=== PATIENT | female | born 1975 | race African-American/Black ===

== ENCOUNTER 2017-08-06 01:13 | Emergency (ER) | payer OTHER ==
[~2017-08-06] VITALS: Ht 165.1 cm; Wt 73.3 kg
[2017-08-06 01:16] VITALS: BP 143/84
[2017-08-06 01:56] LABS: HEMATOCRIT 37.3 % (36.0-46.0); HEMOGLOBIN 12.2 G/DL (11.9-15.5); MCH 26.5 PG (29.0-34.0); MCHC 32.7 G/DL (30.0-36.0); MCV 81.1 FL (83-99); PLATELET COUNT 200 K/uL (156-360); RBC DIS.WIDTH-SD 40.2 % (39-53); WHITE BLOOD COUNT 8.4 K/uL (4.1-10.2)
[2017-08-06 02:17] LABS: ALBUMIN 4.2 G/DL (3.2-4.8); CHLORIDE 104 MEQ/L (99-109); POTASSIUM 3.9 MEQ/L (3.7-5.4); SODIUM 135 MEQ/L (136-147); TOTAL BILIRUBIN 0.3 MG/DL (0.0-1.0)
[2017-08-06 02:23] LABS: ALKALINE PHOSPHATASE 65 IU/L (3-129); ALT (GPT) 13 IU/L (3-49); AST (GOT) 16 IU/L (2-34); CREATININE 0.8 MG/DL (0.6-1.3); GFR ESTIMATE (CALCULATED) > 59 mL/min/; GLUCOSE 120 mg/dL (70-99); TOTAL PROTEIN 7.3 G/DL (6.4-8.3); UREA NITROGEN (BUN) 10 mg/dL (9-23)
[2017-08-06 02:34] LABS: QUANTITATIVE HCG 90095.5 MIU/ML
[2017-08-06 04:21] LABS: APPEARANCE SL.HAZY ((CLEAR)); BILIRUBIN NEGATIVE; BLOOD MODERATE; COLOR YELLOW ((YELLOW)); GLUCOSE (STRIP) NEGATIVE; KETONES 5; LEUKOCYTES TRACE; NITRITE NEGATIVE; PROTEIN (STRIP) 30; SPECIFIC GRAVITY 1.029 (1.000-1.030); UROBILINOGEN 0.2 MG/DL (0.2-1.0)
[2017-08-06 04:26] LABS: BACTERIA 1+ /HPF; EPITHELIAL CELLS 1+ /HPF; HYALINE CASTS 0-5 /LPF; MUCUS TRACE /LPF; RED BLOOD CELLS 0-5 /HPF (0-5); UCUL ADDED? YES
== END 2017-08-06 05:55 | disposition home or self-care (01) ==
LOC: EME 01:13
DX: O20.9 Hemorrhage in early pregnancy, unspecified (principal); O09.511 Supervision of elderly primigravida, first trimester; Z3A.01 Less than 8 weeks gestation of pregnancy
CPT/HCPCS: 76801; 80053; 81003; 84702; 85027; 87086; 99281; 99284

== ENCOUNTER 2017-08-14 19:52 | Emergency (ER) | payer OTHER ==
[~2017-08-14] VITALS: Ht 165.1 cm; Wt 73.5 kg
[2017-08-14 20:45] LABS: APPEARANCE SL.HAZY ((CLEAR)); BILIRUBIN NEGATIVE; BLOOD LARGE; COLOR YELLOW ((YELLOW)); GLUCOSE (STRIP) 50; KETONES NEGATIVE; LEUKOCYTES NEGATIVE; NITRITE NEGATIVE; PROTEIN (STRIP) NEGATIVE; SPECIFIC GRAVITY 1.011 (1.000-1.030); UROBILINOGEN 0.2 MG/DL (0.2-1.0)
[2017-08-14 21:13] LABS: BACTERIA RARE /HPF; EPITHELIAL CELLS RARE /HPF; MUCUS TRACE /LPF; RED BLOOD CELLS 0-5 /HPF (0-5); UCUL ADDED? NO; WHITE BLOOD CELLS 0-5 /HPF (0-5)
[2017-08-14 21:29] LABS: HEMOGLOBIN 11.6 G/DL (11.9-15.5); MCH 26.8 PG (29.0-34.0); MCHC 33.1 G/DL (30.0-36.0); MCV 80.8 FL (83-99); PLATELET COUNT 218 K/uL (156-360); RBC DIS.WIDTH-SD 41.2 % (39-53); RED BLOOD COUNT 4.33 M/uL (3.80-5.20)
[2017-08-14 21:42] LABS: ALBUMIN 3.8 g/dL (3.2-4.8); CHLORIDE 106 mEq/L (99-109); SODIUM 135 mEq/L (136-147)
[2017-08-14 21:44] LABS: GLUCOSE 199 mg/dL (70-99)
[2017-08-14 21:45] LABS: TOTAL PROTEIN 6.6 g/dL (6.4-8.3)
[2017-08-14 21:46] LABS: TOTAL BILIRUBIN 0.2 mg/dL (0.0-1.0)
[2017-08-14 21:48] LABS: ALKALINE PHOSPHATASE 75 IU/L (3-129); CREATININE 0.8 mg/dL (0.6-1.3); GFR ESTIMATE (CALCULATED) > 59 mL/min/
[2017-08-14 21:49] LABS: UREA NITROGEN (BUN) 9 mg/dL (9-23)
[2017-08-14 21:50] LABS: AST (GOT) 15 IU/L (2-34)
[2017-08-14 21:51] LABS: ALT (GPT) 13 IU/L (3-49)
[2017-08-14 22:48] VITALS: BP 155/83
== END 2017-08-14 22:48 | disposition home or self-care (01) ==
LOC: EME 19:52
PROVIDERS: Physician Assistant
DX: O43.891 Other placental disorders, first trimester (principal); O20.8 Other hemorrhage in early pregnancy; Z3A.01 Less than 8 weeks gestation of pregnancy
CPT/HCPCS: 76801; 80053; 81003; 84702; 85027; 99281; 99284

== ENCOUNTER 2017-09-25 02:10 | Emergency (ER) | payer OTHER ==
[~2017-09-25] VITALS: Ht 167.6 cm; Wt 77.3 kg
[2017-09-25 02:37] LABS: APPEARANCE CLEAR ((CLEAR)); COLOR COLORLESS ((YELLOW)); GLUCOSE (STRIP) NEGATIVE; LEUKOCYTES NEGATIVE; NITRITE NEGATIVE; PH, URINE 6 (5-8); PROTEIN (STRIP) NEGATIVE
[2017-09-25 02:38] LABS: BILIRUBIN NEGATIVE; BLOOD NEGATIVE; KETONES NEGATIVE; UCUL ADDED? NO; UROBILINOGEN 0.2 MG/DL (0.2-1.0)
[2017-09-25] MEDS ORDERED: PRENATAL TABLE1 EAC3 PO (04:22)
[2017-09-25 05:07] VITALS: BP 117/79
== END 2017-09-25 05:15 | disposition home or self-care (01) ==
LOC: EME 02:10
DX: O99.89 Other specified diseases and conditions complicating pregnancy, childbirth and the puerperium (principal); R33.9 Retention of urine, unspecified; O09.522 Supervision of elderly multigravida, second trimester; Z3A.14 14 weeks gestation of pregnancy
CPT/HCPCS: 81003; 81025; 99281; 99284